=== PATIENT | female | born 1985 | race Caucasian/White ===

== ENCOUNTER 2021-05-07 22:50 | Inpatient (IN) | payer BC ==
[~2021-05-07] VITALS: Ht 162.6 cm; Wt 86.8 kg
--- NOTE | 2021-05-07 23:00 | NUR ---
Ambulatory to unit for labor assessment, accompanied by spouse. PT reports ctx started @ 2200. Oriented to room, monitor, plan of care. Questions invited and answered. Pt's woried about not getting an epidural. SVE as noted.
[2021-05-07 23:10] VITALS: BP 126/82; PULSE 88; TEMP 98.4
[2021-05-07 23:41] LABS: BASO # 0.1 K/mm3 (0.0-0.2); BASO % 0.4 % (0.0-2.0); EOS # 0.1 K/mm3 (0.0-0.7); EOS % 0.8 % (0-4.0); GRAN # 9.8 K/mm3 (1.4-6.5); GRAN % 74.4 % (42.2-75.2); HEMOGLOBIN 11.8 g/dl (12.5-16.0); LYMPH # 2.4 K/mm3 (1.2-3.4); LYMPH % 18.2 % (20.0-51.0); MEAN CELL VOLUME 87 fl (80.0-100.0); MEAN CORPUSCULAR HEMOGLOBIN 30 pg (27.0-31.0); MEAN CORPUSCULAR HGB CONC 34 g/dl (33.0-37.0); MEAN PLATELET VOLUME 10.4 fl (7.4-10.4); MONO # 0.8 K/mm3 (0.1-0.6); MONO % 5.9 % (1.7-9.3); PLATELET COUNT 280 K/mm3 (130-400); RED BLOOD COUNT 3.96 M/mm3 (4.10-5.30); REDCELL DISTRIBUTION WIDTH-CV 13.2 % (11.5-14.5)
[2021-05-07 23:43] LABS: HEMATOCRIT 34.3 % (37.0-47.0)
[2021-05-07 23:45] VITALS: BP 142/80; PULSE 78
--- NOTE | 2021-05-07 23:45 | NUR ---
2345 SITTING UP FOR EPID PLACEMENT. EPID TEST DOSE AT 2351. SEE ANESTHESIA RECORD FOR MORE INFORMATION.
[2021-05-08] VITALS (18 sets, daily range): BP systolic 113–135; BP diastolic 58–82; PULSE 72–123; TEMP 97.6–98.6
--- NOTE | 2021-05-08 01:30 | NUR ---
0130 DR ROLES HERE. READIED FOR DEL. PUSHES WELL WITH CONTRACTIONS. 0139 DEL VIABLE FEMALE OVER 2ND DEGREE LAC WITH 7//9 APGARS. IV CONT TO INFUSE.
[2021-05-08] MEDS ORDERED: PROTONIX20 MG PO (01:36)
[2021-05-08] MEDS ORDERED: ZYRTEC 10MG10 MG PO (01:37)
[2021-05-08] MEDS ORDERED: EUTHYROX75 MCG PO (01:38)
--- NOTE | 2021-05-08 03:15 | NUR ---
0315 IV TO INT. EPID CATH REMOVED. ATTEMPTED TO STAND AT SIDE OF BED WITH RIGHT LEG UNABLE TO SUPPORT PT. TO BED AND PERICARE DONE. TO 214 PER W/C AND HERB WELL.
--- NOTE | 2021-05-08 09:24 | NUR ---
Initial visit; Patient indisposed, [employer] Shift Manager spoke with patient's , wishing them both congratulations and God's blessings for the of their daughter and thanking them for choosing [facility].
--- NOTE | 2021-05-08 18:30 | NUR ---
Report recieved. Resting in bed while holding . Updated whiteboard and reviewed POC. Plans to complete Certificate tonight. Questions invited.
--- NOTE | 2021-05-09 02:15 | NUR ---
Requests for infant to remain in the nsy following 24 hour lab drawn. Requests scheduled Motrin not be given unless she calls out and requests it. Reports she is currently not in any pain.
[2021-05-09 08:15] VITALS: BP 121/68; PULSE 79; TEMP 97.8
[2021-05-09 20:30] VITALS: BP 130/82; PULSE 76; TEMP 98.4
[2021-05-10 08:48] VITALS: BP 134/90; PULSE 66; TEMP 97.7
[2021-05-10 10:15] VITALS: BP 133/87; PULSE 76
== END 2021-05-10 10:30 | disposition home or self-care (01) | DRG 807 ==
LOC: LDRO 22:50 → LDR 23:26 → OB 23:26 → LDR 05-08 01:55 → OB 05-08 03:15
PROVIDERS: Obstetrics & Gynecology; ADMIT Student in an Organized Health Care Education/Training Program
PROC: 10E0XZZ Delivery of Products of Conception, External Approach (ICD-10-PCS; principal; 2021-05-08)
PROC: 0KQM0ZZ Repair Perineum Muscle, Open Approach (ICD-10-PCS; 2021-05-08)
DX: O99.824 Streptococcus B carrier state complicating childbirth (principal); Z37.0 Single live birth; O99.344 Other mental disorders complicating childbirth; F90.9 Attention-deficit hyperactivity disorder, unspecified type; O99.284 Endocrine, nutritional and metabolic diseases complicating childbirth; E03.9 Hypothyroidism, unspecified; O77.0 Labor and delivery complicated by meconium in amniotic fluid; O70.1 Second degree perineal laceration during delivery; Z3A.40 40 weeks gestation of pregnancy
CPT/HCPCS: J2540; J2590; J2795; J7120